=== PATIENT | female | born 1955 | race Caucasian/White ===

== ENCOUNTER 2016-10-14 11:44 | Observation (INO) | payer BC, OTHER ==
[~2016-10-14] VITALS: Ht 170.2 cm; Wt 86.0 kg
[2016-10-14] MEDS ORDERED: FAMOTIDINE 20MG/2ML IV (PEPCID) ONE (11:49)
[2016-10-14] MEDS ORDERED: methylPREDNISolone 125 MG (Solu-MEDROL) VIAL ONE (11:49)
[2016-10-14] MEDS ORDERED: diphenhydrAMINE 50 MG/ML INJ (BENADRYL) ONE (11:49)
[2016-10-14 12:18] LABS: BASOPHILS % (AUTO) 0 % (0-10); EOSINOPHILS # (AUTO) 0.1 10^3/uL (0.0-0.3); EOSINOPHILS % (AUTO) 0 % (0-10); LYMPHOCYTES # (AUTO) 5.1 X 10^3 (1.0-4.0); LYMPHOCYTES % (AUTO) 29 % (12-44); MEAN CORPUSCULAR HEMOGLOBIN 32 PG (25-34); MEAN CORPUSCULAR HGB CONC 34 G/DL (32-36); MEAN CORPUSCULAR VOLUME 96 FL (80-99); MEAN PLATELET VOLUME 10.3 FL (7.4-10.4); MONOCYTES # (AUTO) 0.7 X 10^3 (0.0-1.0); MONOCYTES % (AUTO) 4 % (0-12); NEUTROPHILS # (AUTO) 11.9 X 10^3 (1.8-7.8); NEUTROPHILS % (AUTO) 67 % (42-75); PLATELET COUNT 352 10^3/uL (130-400); RED BLOOD COUNT 4.37 10^6/uL (4.35-5.85); RED CELL DISTRIBUTION WIDTH 12.8 % (10.0-14.5); WHITE BLOOD COUNT 17.8 10^3/uL (4.3-11.0)
[2016-10-14 12:24] LABS: KETONES,URINE NEGATIVE (NEGATIVE); LEUKOCYTE ESTERASE ,URINE 2+ (NEGATIVE); NITRITE,URINE POSITIVE (NEGATIVE); PH,URINE 5 (5-9); PROTEIN,URINE 3+ (NEGATIVE); UROBILINOGEN,URINE 4 MG/DL (NORMAL)
[2016-10-14] MEDS ORDERED: CYCL10TA9 PO (12:26)
[2016-10-14] MEDS ORDERED: METO-272 PO (12:26)
[2016-10-14] MEDS ORDERED: LORA-404 PO (12:27)
--- NOTE | 2016-10-14 12:28 | Diagnostic Imaging Report ---
EXAM: CHEST 1 VIEW, AP/PA ONLY INDICATION: Syncope, shortness of air, weakness. COMPARISON: None. FINDINGS: Normal heart size and pulmonary vascularity. No focal pulmonary opacity, pleural effusion, or pneumothorax. Osseous structures are unremarkable. IMPRESSION: Negative chest. Dictated by: Dictated on workstation # [id number]
[2016-10-14 12:31] LABS: ALANINE AMINOTRANSFERASE 19 U/L (0-55); ALBUMIN 3.6 G/DL (3.2-4.5); ANION GAP 12 MMOL/L (5-14); ASPARTATE AMINO TRANSFERASE 21 U/L (5-34); BILIRUBIN,TOTAL 0.7 MG/DL (0.1-1.0); BLOOD UREA NITROGEN 16 MG/DL (7-18); BUN/CREATININE RATIO 14; CARBON DIOXIDE 19 MMOL/L (21-32); CHLORIDE 107 MMOL/L (98-107); CREATININE SERUM 1.17 MG/DL (0.60-1.30); GFR ESTIMATED 47; GLUCOSE 183 MG/DL (70-105); POTASSIUM 3.7 MMOL/L (3.6-5.0); SODIUM 138 MMOL/L (135-145); TOTAL PROTEIN 6.4 G/DL (6.4-8.2)
[2016-10-14 12:36] LABS: TROPONIN I < 0.30 NG/ML (<0.30)
--- NOTE | 2016-10-14 12:39 | ED General ---
General Chief Complaint: Allergic Reaction Stated Complaint: BACK PAIN/STERNUM Nursing Triage Note: PT ARRIVED PER [facility], PT HAS HYPOTENSION, SHAKINESS, SOA,PT HAS REDDNESS AND HIVES ON TRUNK AND LOWER EXT. PT HAS IV NS INFUSING IN L AC BY EMS Nursing Sepsis Screen: No Definite Risk Source of Information: Patient Exam Limitations: No Limitations History of Present Illness Time Seen by Provider: 11:44 Initial Comments Here by EMS with report of hypotension, shortness of breath, shakiness and overall not feeling well. She states that she was having back pain or abdominal pain that was going through to the back. She does have history of aortic dissection on tea apparently in the septum that is not something there concerned about operating on at this point. Patient was noted to have hives and redness. She does report taking Pyridium for a possible urinary tract infection this morning and eating 2 chocolate chip cookies. She did note loose stools or diarrhea as well as abdominal cramping. She has never had anything like this before although she does have allergic reaction to different medicines. Timing/Duration: 1-3 Hours Severity: Moderate, Severe Associated Systoms: Diaphoresis, Fever/Chills, Rash, Shortness of Air Allergies and Home Medications Allergies Coded Allergies: phenazopyridine (Verified Allergy, Severe, ANAPHYLAXIS, 10/14/16) hydrocodone (Verified Allergy, Mild, 10/14/16) nitrofurantoin (Verified Allergy, Mild, 10/14/16) oxycodone (Verified Allergy, Mild, 10/14/16) Quinolones (Verified Allergy, Unknown, 10/14/16) Sulfa (Sulfonamide Antibiotics) (Verified Allergy, Unknown, 10/14/16) Home Medications Cyclobenzaprine HCl 10 Mg Tablet, 10 MG PO DAILY, (Reported) Lorazepam 0.5 Mg Tablet, 0.5 MG PO HS, (Reported) Metoprolol Succinate 50 Mg Tab.er.24h, 50 MG PO DAILY, (Reported) Constitutional: see HPI, chills, diaphoresis, No fever, weakness EENTM: no symptoms reported Respiratory: see HPI, short of breath Cardiovascular: No chest pain Gastrointestinal: see HPI, abdominal pain, diarrhea Genitourinary: see HPI, dysuria Musculoskeletal: see HPI, back pain Skin: see HPI, change in color, rash All Other Systems Reviewed Negative Unless Noted: Yes Past Grgyvno-Wpijxy-Kivkht Hx Patient Social History Alcohol Use: Denies Use Recreational Drug Use: No Smoking Status: Never a Smoker Recent Foreign Travel: No Contact w/Someone Who Travel: No Recent Infectious Disease Expo: No Recent Hopitalizations: No Seasonal Allergies Seasonal Allergies: No Surgeries HX Surgeries: Yes (BACK SURG AND BREAST REDUCTION) Respiratory Hx Respiratory Disorders: No Cardiovascular Hx Cardiac Disorders: Yes (HEART ANEURYSM) Cardiac Disorders: Palpitations Genitourinary Hx Genitourinary Disorders: Yes Genitourinary Disorders: UTI-Chronic Gastrointestinal Hx Gastrointestinal Disorders: No Musculoskeletal Hx Musculoskeletal Disorders: Yes Musculoskeletal Disorders: Chronic Back Pain Reviewed Nursing Assessment Reviewed/Agree w Nursing PMH: Yes Family Medical History Significant Family History: Heart Disease, CAD Under 55 Years Old Physical Exam Vital Signs Vital Sign - Last 12Hours 10/14/16 11:45 Temp 98.2 Pulse 89 Resp 20 B/P (MAP) 94/75 Pulse Ox 14 O2 Delivery Nasal Cannula O2 Flow Rate 2.00 Capillary Refill : Less Than 3 Seconds General Appearance: WD/WN, Anxious HEENT: PERRL/EOMI, Pharynx Normal Neck: Non Tender, Supple Respiratory: Lungs Clear, Normal Breath Sounds Cardiovascular: No Murmur, Tachycardia Gastrointestinal: Non Tender, Soft Back: Normal Inspection, No CVA Tenderness, No Vertebral Tenderness Extremity: Normal Range of Motion, Non Tender, No Calf Tenderness Neurologic/Psychiatric: Alert, Oriented x3 Skin: Warm/Dry, Rash (hives) Progress/Results/Core Measures Results/Orders Lab Results Laboratory Tests Test 10/14/16 11:55 10/14/16 12:15 Range/Units White Blood Count 17.8 H 4.3-11.0 10^3/uL Red Blood Count 4.37 4.35-5.85 10^6/uL Hemoglobin 14.1 11.5-16.0 G/DL Hematocrit 42 35-52 % Mean Corpuscular Volume 96 80-99 FL Mean Corpuscular Hemoglobin 32 25-34 PG Mean Corpuscular Hemoglobin Concent 34 32-36 G/DL Red Cell Distribution Width 12.8 10.0-14.5 % Platelet Count 352 130-400 10^3/uL Mean Platelet Volume 10.3 7.4-10.4 FL Neutrophils (%) (Auto) 67 42-75 % Lymphocytes (%) (Auto) 29 12-44 % Monocytes (%) (Auto) 4 0-12 % Eosinophils (%) (Auto) 0 0-10 % Basophils (%) (Auto) 0 0-10 % Neutrophils # (Auto) 11.9 H 1.8-7.8 X 10^3 Lymphocytes # (Auto) 5.1 H 1.0-4.0 X 10^3 Monocytes # (Auto) 0.7 0.0-1.0 X 10^3 Eosinophils # (Auto) 0.1 0.0-0.3 10^3/uL Basophils # (Auto) 0.0 0.0-0.1 10^3/uL Neutrophils % (Manual) 58 % Lymphocytes % (Manual) 29 % Monocytes % (Manual) 5 % Eosinophils % (Manual) 1 % Basophils % (Manual) 0 % Band Neutrophils 7 % Blood Morphology Comment NORMAL D-Dimer 9.32 H 0.00-0.49 UG/ML Sodium Level 138 135-145 MMOL/L Potassium Level 3.7 3.6-5.0 MMOL/L Chloride Level 107 98-107 MMOL/L Carbon Dioxide Level 19 L 21-32 MMOL/L Anion Gap 12 5-14 MMOL/L Blood Urea Nitrogen 16 7-18 MG/DL Creatinine 1.17 0.60-1.30 MG/DL Estimat Glomerular Filtration Rate 47 BUN/Creatinine Ratio 14 Glucose Level 183 H 70-105 MG/DL Calcium Level 9.0 8.5-10.1 MG/DL Total Bilirubin 0.7 0.1-1.0 MG/DL Aspartate Amino Transf (AST/SGOT) 21 5-34 U/L Alanine Aminotransferase (ALT/SGPT) 19 0-55 U/L Alkaline Phosphatase 68 40-136 U/L Troponin I < 0.30 <0.30 NG/ML Total Protein 6.4 6.4-8.2 G/DL Albumin 3.6 3.2-4.5 G/DL Urine Color OTHER H Urine Clarity VERY CLOUDY H Urine pH 5 5-9 Urine Specific [place] 1.020 1.016-1.022 Urine Protein 3+ H NEGATIVE Urine Glucose (UA) NEGATIVE NEGATIVE Urine Ketones NEGATIVE NEGATIVE Urine Nitrite POSITIVE H NEGATIVE Urine Bilirubin 3+ H NEGATIVE Urine Urobilinogen 4 H NORMAL MG/DL Urine Leukocyte Esterase 2+ H NEGATIVE Urine RBC (Auto) 3+ H NEGATIVE Urine RBC 2-5 H /HPF Urine WBC TNTC H /HPF Urine Squamous Epithelial Cells 10-25 H /HPF Urine Crystals NONE /LPF Urine Bacteria LARGE H /HPF Urine Casts NONE /LPF Urine Mucus NEGATIVE /LPF Urine Culture Indicated YES My Orders Orders - SMOOTH MITTAL MD Diphenhydramine Injection (Benadryl Inje (10/14/16 11:49) Methylprednisolone Sod Succ (Solu-Medrol (10/14/16 11:49) Famotidine Injection (Pepcid Injection) (10/14/16 11:49) Cbc With Automated Diff (10/14/16 12:04) Comprehensive Metabolic Panel (10/14/16 12:04) Fibrin Degradation Products (10/14/16 12:04) Troponin I (10/14/16 12:04) Ua Culture If Indicated (10/14/16 12:04) Chest 1 View, Ap/Pa Only (10/14/16 12:04) Saline Lock/Iv-Start (10/14/16 12:04) Ekg Tracing (10/14/16 12:04) O2 (10/14/16 12:04) Monitor-Rhythm Ecg Trace Only (10/14/16 12:04) Manual Differential (10/14/16 11:55) Urine Culture (10/14/16 12:15) Ct Angio Chest W (10/14/16 12:55) Iohexol Injection (Omnipaque 350 Mg/Ml 1 (10/14/16 13:00) Sodium Chloride Flush (Catheter Flush Sy (10/14/16 13:00) Ns (Ivpb) (Sodium Chloride 0.9% Ivpb Bag (10/14/16 13:00) Ceftriaxone Injection (Rocephin Injectio (10/14/16 14:45) Blood Culture (10/14/16 14:48) Lactic Acid Analyzer (10/14/16 14:48) Tramadol Tablet (Ultram Tablet) (10/14/16 15:01) Medications Given in ED Current Medications Medications Dose Ordered Sig/[place] Route Start Time Stop Time Status Last Admin Dose Admin Diphenhydramine HCl 50 mg STK-MED ONCE .ROUTE 10/14/16 11:49 10/14/16 11:53 DC 10/14/16 12:28 50 MG Famotidine 20 mg STK-MED ONCE .ROUTE 10/14/16 11:49 10/14/16 11:53 DC 10/14/16 12:28 20 MG Iohexol 125 ml ONCE ONCE IV 10/14/16 13:00 10/14/16 13:01 DC 10/14/16 13:49 125 ML Methylprednisolone Sodium Succinate 125 mg STK-MED ONCE .ROUTE 10/14/16 11:49 10/14/16 11:53 DC 10/14/16 12:29 125 MG Sodium Chloride 10 ml NEEDED PRN IV 10/14/16 13:00 10/14/16 13:49 10 ML Sodium Chloride 100 ml ONCE ONCE IV 10/14/16 13:00 10/14/16 13:01 DC 10/14/16 13:49 80 ML Vital Signs/I&O Vital Sign - Last 12Hours 10/14/16 10/14/16 11:45 11:45 Temp 98.2 Pulse 89 Resp 20 B/P (MAP) 94/75 Pulse Ox 14 97 O2 Delivery Nasal Cannula O2 Flow Rate 2.00 Blood Pressure Mean: 81 Progress Note : Progress Note Seen and evaluated on arrival by EMS. Hives noted. IV, labs, and UA ordered. Chest x-ray ordered. Bedside ultrasound fast exam ordered and no blood in the belly noted and no aortic aneurysm noted. Aorta is 1.7 cm or less from diaphragm to bifurcation. Solu-Medrol 125 mg IV, Benadryl 50 mg IV and Pepcid 20 mg IV ordered. Monitor patient. She was having improvement of her symptoms shortly after administration of medication. Monitor patient. 1448: Patient has findings of urinary tract infection as well as elevated white count. She is also having some intermittent upper back pain. We have considered discharge home previously but now has enough criteria required for admission. Due to significant urinary tract infection and elevated white count in the setting of history of multiple antibiotic allergies, we will admit the patient for IV antibiotics and continued treatment of anaphylaxis. She has findings that would be considered improved pyelonephritis potentially. Blood cultures and lactic acid ordered. Discussed with patient and family who agree with plan. Admit, observation status. Dr. XAVIER accepts patient for admission. Anaphylaxis complicates evaluation with respect to infectious evaluation and sepsis. I do not believe the patient has severe sepsis or septic shock. Anaphylaxis likely result of Pyridium use as symptoms started within 30 minutes after dosing this morning including cramping and syncope. Hives presented at time of arrival here. ECG Initial ECG Impression Date: Oct 14, 2016 Initial ECG Impression Time: 12:10 Initial ECG Rate: 73 Initial ECG Rhythm: Normal Sinus Comment Sinus rhythm with normal axis. No evidence of ST elevation [place]. Artifact noted. No previous available for comparison. Interpreted by me. Diagnostic Imaging Diagonstic Imaging: Xray Plain Films/CT/US/NM/MRI: chest Comments VIA [place], [place] NAME: MARILIN GODINEZ [facility] REC#: [id number] PT STATUS: REG ER : 1955 PHYSICIAN: SMOOTH MITTAL MD ADMIT DATE: 10/14/16/ER Draft Date of Exam:10/14/16 CHEST 1 VIEW, AP/PA ONLY EXAM: CHEST 1 VIEW, AP/PA ONLY INDICATION: Syncope, shortness of air, weakness. COMPARISON: None. FINDINGS: Normal heart size and pulmonary vascularity. No focal pulmonary opacity, pleural effusion, or pneumothorax. Osseous structures are unremarkable. IMPRESSION: Negative chest. Dictated on workstation # [id number] Dict: 10/14/16 1224 Trans: 10/14/16 1227 ROBERT [id number] Interpreted by: STEVEN JIMENES MD Electronically signed by: Diagonstic Imaging: CT Plain Films/CT/US/NM/MRI: chest Comments NAME: MARILIN GODINEZ [facility] REC#: [id number] PT STATUS: REG ER : 1955 PHYSICIAN: SMOOTH MITTAL MD ADMIT DATE: 10/14/16/ER Signed Date of Exam: 10/14/16 CT ANGIO CHEST W PROCEDURE: CT angiography of the chest with contrast. TECHNIQUE: Multiple contiguous axial images were obtained through the chest after uneventful bolus administration of intravenous contrast. Reconstructed CTA MIP acquisitions were also performed. INDICATION: Shortness of breath. CONTRAST: 125 mL of Omnipaque 350 is administered intravenously. FINDINGS: The pulmonary arteries are well opacified with no filling defects to suggest pulmonary embolism. The thoracic aorta is normal in caliber. No dissection or aneurysm. Normal variant of direct origin of the left vertebral artery from the arch is seen. There is a small hiatal hernia. There is no mediastinal mass or lymphadenopathy. No hilar lymphadenopathy. No axillary lymphadenopathy. The heart size is normal. No pericardial or pleural effusion. The lungs demonstrate mild dependent atelectasis bilaterally. There is no significant consolidation, mass, or suspicious nodule seen otherwise. Degenerative changes in the thoracic spine seen. There is prominent diffuse hepatic steatosis noted. IMPRESSION: 1. No PE or aortic dissection. Minimal pulmonary atelectasis. 2. Small hiatal hernia. 3. Diffuse hepatic steatosis. Dictated by: Dictated on workstation # [id number] Dict: 10/14/16 1407 Trans: 10/14/16 1417 [id number] Interpreted by: SATURNINO OVERTON MD Electronically signed by:SATURNINO OVERTON MD 10/14/16 1417 Departure Communication Time/Spoke to Admitting Phy: 14:48 Impression Impression: Primary Impression: Anaphylaxis Qualified Codes: T78.2XXA - Anaphylactic shock, unspecified, initial encounter Additional Impression: Urinary tract infection Qualified Codes: N30.00 - Acute cystitis without hematuria Disposition: ADMITTED INPATIENT Condition: Stable Decision to Admit Reason: Admit from ER (General) Decision to Admit/Date: Oct 14, 2016 Time/Decision to Admit Time: 14:48 Departure-Patient Inst. Referrals: NO,LOCAL PHYSICIAN (PCP/Family) Primary Care Physician SMOOTH MITTAL MD Oct 14, 2016 12:39
[2016-10-14 12:41] LABS: BILIRUBIN,URINE 3+ (NEGATIVE); WBC,URINE TNTC /HPF
[2016-10-14 12:53] LABS: BAND NEUTROPHILS 7 %; BASOPHILS % (MANUAL) 0 %; EOSINOPHILS % (MANUAL) 1 %; LYMPHOCYTES % (MANUAL) 29 %; NEUTROPHILS % (MANUAL) 58 %
[2016-10-14] MEDS ORDERED: NS 100 ML (IVPB) BAG IV ONE (13:00)
[2016-10-14] MEDS ORDERED: IOHEXOL 350 MG/ML 150 ML (OMNIPAQUE 350) VIAL IV ONE (13:00)
[2016-10-14] MEDS ORDERED: CATHETER FLUSH 10 ML SYR IV PRN ×2 (13:00→16:45)
--- NOTE | 2016-10-14 14:17 | Diagnostic Imaging Report ---
PROCEDURE: CT angiography of the chest with contrast. TECHNIQUE: Multiple contiguous axial images were obtained through the chest after uneventful bolus administration of intravenous contrast. Reconstructed CTA MIP acquisitions were also performed. INDICATION: Shortness of breath. CONTRAST: 125 mL of Omnipaque 350 is administered intravenously. FINDINGS: The pulmonary arteries are well opacified with no filling defects to suggest pulmonary embolism. The thoracic aorta is normal in caliber. No dissection or aneurysm. Normal variant of direct origin of the left vertebral artery from the arch is seen. There is a small hiatal hernia. There is no mediastinal mass or lymphadenopathy. No hilar lymphadenopathy. No axillary lymphadenopathy. The heart size is normal. No pericardial or pleural effusion. The lungs demonstrate mild dependent atelectasis bilaterally. There is no significant consolidation, mass, or suspicious nodule seen otherwise. Degenerative changes in the thoracic spine seen. There is prominent diffuse hepatic steatosis noted. IMPRESSION: 1. No PE or aortic dissection. Minimal pulmonary atelectasis. 2. Small hiatal hernia. 3. Diffuse hepatic steatosis. Dictated by: Dictated on workstation # [id number]
[2016-10-14] MEDS ORDERED: cefTRIAXone INJECTION 1,000 MG in NS (IVPB) 50 ML IV ONE (14:45)
[2016-10-14 16:00] VITALS: BP 132/82
[2016-10-14] MEDS ORDERED: LORazepam INJ 2 MG/ML (ATIVAN) VIAL IV PRN (16:45)
[2016-10-14] MEDS ORDERED: diphenhydrAMINE 25 MG TAB (BENADRYL) PO PRN (16:45)
[2016-10-14] MEDS ORDERED: ACET-77 PO (16:46)
[2016-10-14] MEDS ORDERED: DIPH25TA31 PO (16:46)
[2016-10-14] MEDS ORDERED: METO-333 PO (16:55)
[2016-10-14] MEDS ORDERED: LORA1TAB PO (16:55)
[2016-10-14] MEDS: NS IV 1000 ML 1,000 ML IV SCH (17:15)
[2016-10-14 20:00] VITALS: BP 123/69
[2016-10-14] MEDS: methylPREDNISolone 125 MG (Solu-MEDROL) VIAL IV SCH (21:02)
[2016-10-15 00:10] VITALS: BP 106/62
[2016-10-15 04:05] VITALS: BP 118/73
[2016-10-15] MEDS: methylPREDNISolone 125 MG (Solu-MEDROL) VIAL IV SCH ×2 (05:55→14:29)
[2016-10-15] MEDS: NS IV 1000 ML 1,000 ML IV SCH (06:29)
[2016-10-15 06:46] LABS: BASOPHILS % (AUTO) 0 % (0-10); EOSINOPHILS % (AUTO) 0 % (0-10); LYMPHOCYTES # (AUTO) 1.6 X 10^3 (1.0-4.0); LYMPHOCYTES % (AUTO) 9 % (12-44); MEAN CORPUSCULAR HEMOGLOBIN 32 PG (25-34); MEAN CORPUSCULAR HGB CONC 33 G/DL (32-36); MEAN CORPUSCULAR VOLUME 96 FL (80-99); MEAN PLATELET VOLUME 10.7 FL (7.4-10.4); MONOCYTES # (AUTO) 0.2 X 10^3 (0.0-1.0); MONOCYTES % (AUTO) 1 % (0-12); NEUTROPHILS # (AUTO) 15.8 X 10^3 (1.8-7.8); NEUTROPHILS % (AUTO) 90 % (42-75); PLATELET COUNT 271 10^3/uL (130-400); RED BLOOD COUNT 3.72 10^6/uL (4.35-5.85); RED CELL DISTRIBUTION WIDTH 12.9 % (10.0-14.5); WHITE BLOOD COUNT 17.6 10^3/uL (4.3-11.0)
[2016-10-15 07:15] LABS: ALANINE AMINOTRANSFERASE 18 U/L (0-55); ALBUMIN 3.4 G/DL (3.2-4.5); ANION GAP 10 MMOL/L (5-14); ASPARTATE AMINO TRANSFERASE 19 U/L (5-34); BILIRUBIN,TOTAL 0.6 MG/DL (0.1-1.0); BLOOD UREA NITROGEN 15 MG/DL (7-18); BUN/CREATININE RATIO 15; CALCIUM 8.8 MG/DL (8.5-10.1); CARBON DIOXIDE 19 MMOL/L (21-32); CHLORIDE 109 MMOL/L (98-107); CREATININE SERUM 1.01 MG/DL (0.60-1.30); GFR ESTIMATED 56; GLUCOSE 150 MG/DL (70-105); POTASSIUM 4.6 MMOL/L (3.6-5.0); SODIUM 138 MMOL/L (135-145); TOTAL PROTEIN 6.1 G/DL (6.4-8.2)
[2016-10-15 07:24] LABS: TROPONIN I < 0.30 NG/ML (<0.30)
[2016-10-15 07:49] VITALS: BP 128/76
[2016-10-15] MEDS ORDERED: cefTRIAXone INJECTION 1,000 MG in NS (IVPB) 50 ML IV SCH (09:00)
[2016-10-15] MEDS ORDERED: PRED10TA22 PO (10:34)
[2016-10-15] MEDS ORDERED: FEXO180T84 PO (10:34)
[2016-10-15] MEDS ORDERED: CFTR1PB IV (10:36)
--- NOTE | 2016-10-15 10:36 | Short Stay Summary-Hospitalist ---
HPI History of Present Illness: HPI/Chief Complaint CC: Low BP and abdominal pain HPI: This is a 61yoWF pt that presents with low BP and SOB. She is diagnosed with anaphylaxis possibly due to UTI treatment specifically Pyridium so she was admitted closely monitored, and maintained on IV fluids along with Rocephin and Solumedrol. Chart Review: Ucx reveals E. coli Patient Interview: Pt states that she has had multiple UTIs before, and Pyridium has not previously resulted in complications. Pt states that she took her meds with breakfast this morning, and pt felt a BM coming, and soon after felt strange throughout her body. Pt lay down and felt nausea. Pt then stood up passed out, falling to the floor. Pt then tried to stand up, but was unable to and continued to have nausea. Pt began to experience a dull aching pain in her throat. Pt crawled to sofa, and began to have sharp back pain. Pt then called family member for assistance, and decided to come to [facility]. When pt arrived at [facility] , she felt very shaky, and had red flushed skin and hives on her legs. Pt states that she has lower back pain still. Pt asks about meds for UTIs, with regard to her drug allergies. Pt recently took ten days of Keflex for a UTI, and stopped it around 1 week ago. Pt states that her insurance does not cover a number of her preferred UTI meds. Physical exam stable. Lungs clear. Pt worked as a nurse at [employer] in [place], and recently retired in June. Pt states that she would like to DC to home today if possible. Pt's family member states that pt has been SOB throughout the past week. Pt does not use home O2. Pt has had increased allergies this season. Pt's PCP is Alondra Wild in [place] due to recent changes with insurance. Pt uses [facility] pharmacy. Scribed by Júnior Dodge under the direct supervision of Dr. Kruger. Source: patient Date Seen 10/15/16 Attending Physician Gerhard Strauss MD PCP No,Local Physician Referring Physician Date of Admission Oct 14, 2016 at 14:55 Home Medications & Allergies Home Medications Reviewed patient Home Medication Reconciliation Form Allergies Allergies Coded Allergies phenazopyridine (Verified Allergy, Severe, ANAPHYLAXIS, 10/14/16) hydrocodone (Verified Allergy, Mild, 10/14/16) nitrofurantoin (Verified Allergy, Mild, 10/14/16) oxycodone (Verified Allergy, Mild, 10/14/16) Quinolones (Verified Allergy, Unknown, 10/14/16) Sulfa (Sulfonamide Antibiotics) (Verified Allergy, Unknown, 10/14/16) Past Kgjdtsh-Ofpsiv-Bucziz Hx Patient Social History Marrital Status: 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[employer]) Alcohol Use: Denies Use Recreational Drug Use: No Smoking Status: Never a Smoker Recent Foreign Travel: Yes Contact w/other who traveled: No Recent Hopitalizations: No Recent Infectious Disease Expo: No Seasonal Allergies Seasonal Allergies: Yes Surgeries HX Surgeries: Yes (BACK SURG AND BREAST REDUCTION) Respiratory Hx Respiratory Disorders: No Cardiovascular Hx Cardiovascular Disorders: Yes (HEART ANEURYSM) Cardiac Disorders: High Cholesterol, Hypertension, Palpitations Neurological Hx Neurological Disorders: No Reproductive System Sexually Transmitted Disease: No HIV/AIDS: No Female Reproductive Disorders: Denies Genitourinary Hx Genitourinary Disorders: Yes Genitourinary Disorders: Kidney Stones, UTI-Chronic Gastrointestinal Hx Gastrointestinal Disorders: No Gastrointestinal Disorders: Irritable Bowel Musculoskeletal Hx Musculoskeletal Disorders: Yes Musculoskeletal Disorders: Chronic Back Pain HEENT Loss of Vision: Denies Hearing Impairment: Denies Psychosocial Behavioral Health Disorders: Anxiety Blood Transfusions Adverse Reaction to a Blood Tr: No Reviewed Nursing Assessment Reviewed/Agree w Nursing PMH: Yes Family Medical History Significant Family History: Heart Disease, CAD Under 55 Years Old Family Hx: Cardiovascular disease G8 BROTHER, Onset:60 years & older Diabetes mellitus 19 MOTHER, Onset:60 years & older Myocardial infarction 19 FATHER, Onset:50's - 60 G8 SISTER, Onset:30's - 40 Review of Systems Constitutional: see HPI, weakness EENTM: no symptoms reported Respiratory: short of breath (progressive for the past several months) Gastrointestinal: no symptoms reported Genitourinary: no symptoms reported Musculoskeletal: no symptoms reported Skin: no symptoms reported Psychiatric/Neurological: No Symptoms Reported All Other Systems Reviewed Negative Unless Noted: Yes Physical Exam Physical Exam Vital Signs Vital Sign - Last 12Hours 10/14/16 11:45 Temp 98.2 Pulse 89 Resp 20 B/P (MAP) 94/75 Pulse Ox 14 O2 Delivery Nasal Cannula O2 Flow Rate 2.00 Capillary Refill : Less Than 3 Seconds General Appearance: No Apparent Distress, WD/WN Eyes: Bilateral Eye Normal Inspection, Bilateral Eye PERRL HEENT: PERRL/EOMI, Normal ENT Inspection, Pharynx Normal Neck: Full Range of Motion, Normal Inspection, Non Tender, Supple, Carotid Bruit Respiratory: Chest Non Tender, Lungs Clear, Normal Breath Sounds, No Accessory Muscle Use, No Respiratory Distress Cardiovascular: Regular Rate, Rhythm, No Edema, No Gallop, No JVD, No Murmur, Normal Peripheral Pulses Gastrointestinal: Normal Bowel Sounds, No Organomegaly, No Pulsatile Mass, Non Tender, Soft Back: Normal Inspection, No CVA Tenderness, No Vertebral Tenderness Extremity: Normal Capillary Refill, Normal Inspection, Normal Range of Motion, Non Tender, No Calf Tenderness, No Pedal Edema Neurologic/Psychiatric: Alert, Oriented x3, No Motor/Sensory Deficits, Normal Mood/Affect Skin: Normal Color, Warm/Dry Lymphatic: No Adenopathy Results Results/Procedures Lab Laboratory Tests 10/14/16 11:55 10/15/16 05:50 Short Stay Diagnosis Discharge Diagnosis-Short Stay Admission Diagnosis Assessment: Anaphylaxis possibly due to Pyridium vs sensitivity to allergies with pollen exposure? Multiple allergies to meds and environmental triggers chronically HTN Anxiety Leukocytosis due to steroids Final Discharge Diagnosis Assessment: Anaphylaxis possibly due to Pyridium vs sensitivity to allergies with pollen exposure? Multiple allergies to meds and environmental triggers chronically HTN Anxiety Leukocytosis due to steroids Conclusion Plan Plan: Likely DC to home today with close follow-up with PCP. Antibiotics to treat UTI w/Rocephin IV daily for 3 more days due to allergy profile May need allergy evaluation due to severity of her allergic reaction and multiple other allergy related issues Clinical Quality Measures DVT/VTE Risk/Contraindication: Risk Factor Score Per Nursin RFS Level Per Nursing on Admit: 4+=Very High DAVID KRUGER DO Oct 15, 2016 10:36
--- NOTE | 2016-10-15 10:40 | Discharge Instructions ---
Discharge Instructions Discharge Medications New, Converted or Re-Newed RX: Transmitted to Pharmacy New Medications: Ceftriaxone Sod (Ceftriaxone) 1 Gm/Vial Soln 1 GM IV DAILY for 3 Days, EA Fexofenadine HCl (Breanne Allergy) 180 Mg Tablet 180 MG PO DAILY, #30 TAB Prednisone (Prednisone) 10 Mg Tab.ds.pk 10 MG PO DAILY, #21 PKG Take 6 tabs(60mg)daily,decrease by 1 tab(10MG)daily. Continued Medications: Acetaminophen (Acetaminophen) 500 Mg Tablet 1000 MG PO HS, TAB Cyclobenzaprine HCl (Cyclobenzaprine HCl) 10 Mg Tablet 10 MG PO TID PRN for MUSCLE SPASMS, TAB Diphenhydramine HCl (Diphenhydramine HCl) 25 Mg Tablet 25 MG PO HS, TAB Lorazepam (Lorazepam) 1 Mg Tablet 0.5-1 MG PO TID PRN for ANXIETY, TAB TAKES 1/2 TO 1 OF A (1 MG) TABLET Metoprolol Tartrate (Metoprolol Tartrate) 25 Mg Tablet 25 MG PO BID, TAB Patient Instructions Goal/Follow Up Appt: Urmila Wild at [facility] this week Maintain Rocephin 1 gram IV daily for 3 days at [facility] Activity & Diet Discharge Diet: No Restrictions Activity as Tolerated: Yes DAVID KRUGER DO Oct 15, 2016 10:40
[2016-10-15] MEDS ORDERED: LORazepam 0.5 MG (ATIVAN) TABLET PO PRN (10:45)
[2016-10-15] MEDS ORDERED: CYCLOBENZAPRINE 10 MG (FLEXERIL) TAB PO PRN (10:45)
[2016-10-15 11:45] VITALS: BP 134/74
[2016-10-15 18:10] VITALS: BP 134/74
[2016-10-15] MEDS ORDERED: diphenhydrAMINE 25 MG TAB (BENADRYL) PO SCH (21:00)
[2016-10-15] MEDS ORDERED: meTOprolol TARTRATE 25 MG (LOPRESSOR) TABLET PO SCH (21:00)
[2016-10-15] MEDS ORDERED: ACETAMINOPHEN 500 MG TAB (TYLENOL) PO SCH (21:00)
== END 2016-10-15 10:38 | disposition home or self-care (01) ==
LOC: ER 11:46 → 4TH 14:55 → UNDOADMOB 14:55 → 4TH 16:00 → UNDODISOB 10-15 18:14
PROVIDERS: ADMIT Internal Medicine; ATTEND Internal Medicine
DX: T88.6XXA Anaphylactic reaction due to adverse effect of correct drug or medicament properly administered, initial encounter (principal); T39.8X5A Adverse effect of other nonopioid analgesics and antipyretics, not elsewhere classified, initial encounter; N39.0 Urinary tract infection, site not specified; I10 Essential (primary) hypertension; F41.9 Anxiety disorder, unspecified; D72.829 Elevated white blood cell count, unspecified; T38.0X5A Adverse effect of glucocorticoids and synthetic analogues, initial encounter
CPT/HCPCS: 36415; 71010; 71275; 80053; 81000; 83605; 84484; 85007; 85025; 85027; 85379; 87040; 87088; 87186; 93005; 93041; 96365; 96375; G0378

== ENCOUNTER → 2016-10-31 | Outpatient (CLI) | payer BC ==
[~2016-10-31] MED LIST: ACET-77 PO; CFTR1PB IV; CYCL10TA9 PO; DIPH25TA31 PO; FEXO180T84 PO; LORA-404 PO; LORA1TAB PO; METO-272 PO; METO-333 PO; PRED10TA22 PO
--- NOTE | 2016-11-01 09:21 | ECHOCARDIOGRAPHY REPORT ---
DATE OF SERVICE: 10/31/2016 PROCEDURE: Two-dimensional echocardiogram. REFERRING PHYSICIAN: Macrina Wild APRN MEASUREMENT: LVID end diastolic 3.5, IVS thickness 1.0, LVPW thickness 1.0, left atrial diameter 3.6, ejection fraction 60%. FINDINGS: 1. Technical quality is good. 2. The left ventricle is normal in size with normal contractility. Systolic function appeared to be normal, estimated ejection fraction 60%. 3. The left atrium is normal in size. No clots or thrombus were seen within the left atrium. 4. The right atrium and right ventricle are normal in size. No clots or thrombus were seen within the right side. 5. The mitral valve is normal in morphology with trace mitral regurgitation noted by color Doppler flow. No mitral valve prolapse. No mitral valve stenosis. No vegetation was noted on the mitral leaflet. 6. The aortic valve is trileaflet with normal opening and closing pattern. No significant aortic valve stenosis or regurgitation was noted. No vegetation was noted on the aortic valve. 7. The tricuspid valve and pulmonic valve appeared to be functioning normally, color Doppler flow across the tricuspid valve showed trace tricuspid regurgitation. Doppler across the tricuspid valve estimated a pulmonary artery pressure of 5 plus right atrial pressure. 8. The pulmonic valve is functioning normally. 9. No pericardial effusion. CONCLUSION: 1. Normal left ventricular size and systolic function, estimated ejection fraction 60%. 2. Mild mitral and tricuspid regurgitation. 3. Estimated pulmonary artery pressure of 15 mmHg. Job ID: [id number] DocumentID: [id number] Dictated Date: 10/31/2016 17:11:30 Finished Hardware Erector Date: 11/01/2016 05:29:35 Dictated By: NICHOLE DELGADO MD
== END ==
LOC: CARD 10:41
PROVIDERS: ATTEND Nurse Practitioner Family
DX: R06.02 Shortness of breath (principal)
CPT/HCPCS: 93306